=== PATIENT | female | born 1965 | race Caucasian/White ===

== ENCOUNTER 2016-07-17 11:45 | Emergency (ER) | payer OTHER ==
[2016-07-17 11:56] VITALS: BP 163/90; PULSE 95; TEMP 98; BMI 28.3
[2016-07-17] MEDS ORDERED: KETOROLAC TROMETHAMINE 60 MG/2 ML VIAL IM ONE (12:56)
--- NOTE | 2016-07-17 12:56 | PDOC ---
History of Present Illness - General Chief Complaint: Back Pain Stated Complaint: LOWER BACK PAIN Time Seen by Provider: 07/17/16 12:16 History Source: Patient Exam Limitations: No Limitations - History of Present Illness Initial Comments: 07/17/16 15:41 Chief complaint: Back injury Patient is a 50-year-old female with no significant medical issues who states she injured her back 2 days ago when lifting something at work. Patient complaining of pain to the right lower back into the leg without any numbness. Patient took Aleve earlier which did not help her. No incontinence or dysuria or saddle anesthesia. GENERAL/CONSTITUTIONAL: No fever, weakness. dizziness HEAD, EYES, EARS, NOSE AND THROAT: No change in vision. No ear pain or discharge. No sore throat. CARDIOVASCULAR: No chest pain RESPIRATORY: No shortness of breath or cough GASTROINTESTINAL: No pain, nausea, vomiting, diarrhea or constipation GENITOURINARY: No dysuria MUSCULOSKELETAL: +back pain SKIN: No rash NEUROLOGIC: No headache, vertigo, loss of consciousness, or loss of sensation. GENERAL: The patient is awake, alert, and fully oriented, in no acute distress. HEAD: Normal with no signs of trauma. EYES: Pupils equal, round and reactive to light, sclera anicteric, conjunctiva clear. ENT: pharynx: no erythema, no exudate, uvula midline NECK: supple CHEST: clear, nontender, rr ABD: soft, nontender With mild tenderness at the right si area EXTREMITIES: Normal range of motion, no edema. Strength 5 out of 5 bilaterally upper and lower extremities, neurovascular intact NEUROLOGICAL: Normal speech, patient is able to stand but it's painful SKIN: Warm, Dry Past History - Past Medical History Allergies/Adverse Reactions: Allergies Allergy/AdvReac Type Severity Reaction Status Date / Time No Known Drug Allergies Allergy Verified 07/17/16 11:50 Home Medications: Ambulatory Orders Pantoprazole Sodium [Protonix] 40 mg PO DAILY #30 tablet. 11/18/15 Meloxicam [Mobic] 15 mg PO DAILY #7 tablet 07/17/16 Oxycodone HCl/Acetaminophen [Percocet 5-325 mg Tablet] 2 tab PO Q4H PRN #24 tablet MDD 12 07/17/16 Anemia: No Asthma: No Cancer: No Cardiac Disorders: No CVA: No COPD: No CHF: No Dementia: No Diabetes: No GI Disorders: No Disorders: No HTN: No Hypercholesterolemia: No Liver Disease: No Seizures: No Thyroid Disease: No - Surgical History Abdominal Surgery: No Appendectomy: No Cardiac Surgery: No Cholecystectomy: No Lung Surgery: No Neurologic Surgery: No Orthopedic Surgery: No - Psycho/Social/Smoking Cessation Hx Anxiety: No Suicidal Ideation: No Smoking History: Never smoked Have you smoked in the past 12 months: No Number of Cigarettes Smoked Daily: 0 Hx Alcohol Use: No Drug/Substance Use Hx: No Substance Use Type: None Hx Substance Use Treatment: No *Physical Exam - Vital Signs Last Vital Signs Temp Pulse Resp BP Pulse Ox 98.0 F 95 H 20 163/90 99 07/17/16 11:47 07/17/16 11:47 07/17/16 11:47 07/17/16 11:47 07/17/16 11:47 Medical Decision Making - Medical Decision Making Patient with injury to lower back 2 days ago, lifting something at work, neurologically intact, no incontinence saddle anesthesia or numbness or tingling but has some pain down the right leg, good strength. Patient will get pain medicine, no imaging is indicated 4:30 PM: feels better and is able to go home to rest and take medication and then follow-up with orthopedist Discussed issues, findings, results, applicable medications and treatments and follow-up. All these were understood and all questions were answered *DC/Admit/Observation/Transfer Diagnosis at time of Disposition: Lower back injury Qualifiers: Encounter type: initial encounter Qualified Code(s): S39.92XA - Unspecified injury of lower back, initial encounter - Discharge Dispostion Admit: No - Prescriptions Prescriptions: Meloxicam [Mobic] 15 mg PO DAILY #7 tablet Oxycodone HCl/Acetaminophen [Percocet 5-325 mg Tablet] 2 tab PO Q4H PRN #24 tablet MDD 12 PRN Reason: Pain - Referrals Referrals: Juan Valencia MD [Staff Physician] - - Patient Instructions Printed Discharge Instructions: DI for Back Pain With Sciatica Additional Instructions: No heavy lifting or bending Apply ice to the area 20 minutes every 2 hours for the next 2 days Continue taking Mobic 15 mg once daily for pain. If still in pain you can also take Percocet one to 2 tablets every 4 hours. Return to the nearest ER if numbness, weakness, severe pain, problems with urinating or having bowel movements. Call orthopedist today for an appointment for further evaluation - Post Discharge Activity Work/School Note: Back to Work
[2016-07-17] MEDS ORDERED: KETOROLAC TROMETHAMINE 60 MG/2 ML VIAL ONE (13:02)
[2016-07-17] MEDS ORDERED: OXYCODONE/APAP 5/325MG COMBO TABLET ONE ×2 (13:53→14:22)
[2016-07-17] MEDS ORDERED: OXYCODONE/APAP 5/325MG COMBO TABLET PO ONE ×2 (14:17)
[2016-07-17] MEDS ORDERED: diazePAM 5 MG TABLET PO ONE (14:50)
[2016-07-17] MEDS ORDERED: diazePAM 5 MG TABLET ONE (14:52)
== END 2016-07-17 16:42 | disposition home or self-care (01) ==
LOC: JER 11:45 → JERFT 11:45
DX: S39.82XA Other specified injuries of lower back, initial encounter (principal); X50.0XXA Overexertion from strenuous movement or load, initial encounter; Y93.89 Activity, other specified; Y92.89 Other specified places as the place of occurrence of the external cause; Y99.0 Civilian activity done for income or pay
CPT/HCPCS: 99281-25

== ENCOUNTER 2019-10-07 12:00 | Day surgery (SDC) | payer OTHER ==
[2019-10-04 08:19] VITALS: BMI 30.7
[2019-10-07 12:27] LABS: PH,URINE 6.5 (5.0-8.0); URINE APPEARANCE CLEAR; URINE BILIRUBIN NEGATIVE (NEGATIVE); URINE COLOR YELLOW; URINE GLUCOSE (UA) NEGATIVE (NEGATIVE); URINE KETONE NEGATIVE (NEGATIVE); URINE LEUK ESTERASE NEGATIVE (NEGATIVE); URINE NITRITE NEGATIVE (NEGATIVE); URINE PROTEIN NEGATIVE (NEGATIVE); URINE UROBILINOGEN 0.2 mg/dL (0.2-1.0)
[2019-10-07 12:34] LABS: INR 0.92 (0.83-1.09); PROTHROMBIN TIME (PATIENT) 10.8 SEC (9.7-13.0)
[2019-10-07] MEDS ORDERED: oxyCODONE HCL 5 MG TABLET PO PRN (14:34)
[2019-10-07] MEDS ORDERED: ONDANSETRON 4 MG/2 ML VIAL IVPUSH PRN (14:34)
--- NOTE | 2019-10-07 14:40 | HP ---
History & Physical Update - History History: No Change - Physical Physical: No Change - Assessment Assessment: No Change - Plan Plan: No Change (for lap riky possible open; r/b/t/a's d/w the patient pre-op and in the office in [place] and informed consent obtained.)
[2019-10-07] MEDS ORDERED: LACTATED RINGERS SOLUTION 1,000 ML IV SCH (14:45)
[2019-10-07] MEDS ORDERED: ceFAZolin 2 GRAM PREMIX BAG IVPB ONE (14:56)
[2019-10-07] MEDS ORDERED: BUPIVACAINE HCL/PF 0.5% (5 MG/ML) 30 ML VIAL IJ ONE (15:41)
--- NOTE | 2019-10-07 16:04 | OP ---
Operative Note - Note: Operative Date: 10/07/19 Pre-Operative Diagnosis: Chronic Cholecystitis/cholelithiasis Operation: Lap cholecystectomy Post-Operative Diagnosis: Same as Pre-op Surgeon: Angel Dempsey Anesthesiologist And Critical Care: Audi Guerrier Anesthesiologist/FIXING CARPENTER: Joselin Johansen Anesthesia: General Specimens Removed: gallbladder Estimated Blood Loss (mls): 5 Fluid Volume Replaced (mls): 1,000 Operative Report Dictated: Yes
--- NOTE | 2019-10-07 16:05 | SURG ---
Surgery [employer] Note [employer]: Audi Guerrier PA-C Date of Service: 10/07/19 Diagnosis: chronic cholecystitis/cholelithiasis Procedure: Laprascopic cholecystectomy I was present for the entirety of the operative procedure. For further detail, please refer to operative report. Visit type - Case Type Case Type: Scheduled - New patient This patient is new to me today: Yes Date on this admission: 10/07/19
[2019-10-07] MEDS ORDERED: PROMETHAZINE HCL 25 MG/1 ML VIAL IVPB ONE (17:10)
[2019-10-07] MEDS ORDERED: PROMETHAZINE HCL 25 MG/1 ML VIAL IVPUSH PRN (17:22)
[2019-10-07 19:27] VITALS: PULSE 96
[2019-10-07 19:41] VITALS: BP 120/72; TEMP 97.2
[2019-10-08] MEDS ORDERED: oxyCODONE HCL 5 MG TABLET PO PRN (11:21)
--- NOTE | 2019-10-08 23:49 | OP ---
DATE OF OPERATION: 10/07/2019 PREOPERATIVE DIAGNOSIS: Chronic cholecystitis and cholelithiasis. POSTOPERATIVE DIAGNOSIS: Chronic cholecystitis and cholelithiasis. PROCEDURE: Laparoscopic cholecystectomy. SURGEON: Angel Dempsey MD. RD MANAGER: Audi Guerrier PA-C. ANESTHESIA: General. OPERATIVE FINDINGS: Chronic cholecystitis and cholelithiasis. The rest of the findings are unremarkable. DESCRIPTION OF PROCEDURE: The patient was placed on the operating room table in supine position. After the induction of general anesthesia, the patient's abdomen was prepped with ChloraPrep and draped in sterile fashion. Time-out was taken and then pneumoperitoneum established above the umbilicus using a Veress needle. Once 15 mm of intra-abdominal pressure was obtained, a 5-mm port was placed at the umbilicus. Additional lateral 5-mm ports and a subxiphoid 12-mm port were placed and laparoscopy carried out, and the previously noted findings were observed. The gallbladder was placed on cephalad and lateral traction, and dissection was begun at the neck of the gallbladder where the peritoneum was opened medially and laterally using blunt and sharp dissection and electrocautery. Dissection continued in the triangle of Calot where the cystic duct was identified coursing from the neck of the gallbladder distally to the common bile duct. It was dissected proximally and distally for length. Similarly, the artery was similarly identified and dissected. A critical view of safety was taken, and then the cystic duct divided proximally and distally using Endo Soham after it was clipped twice proximally and distally with large hemoclips. The artery was similarly clipped and divided. Hemostasis was checked for and noted to be good and then the gallbladder was removed from the liver bed in a retrograde fashion using electrocautery. Prior to removal from the edge of the liver, hemostasis was again verified and then the gallbladder removed from the edge of the liver, placed in an EndoCatch, and brought out through the subxiphoid port. Pneumoperitoneum was reestablished, hemostasis verified again, and then the 5-mm lateral and subxiphoid ports were removed under laparoscopic vision without evidence of bleeding from the port sites. The umbilical port was removed and the pneumoperitoneum evacuated. All port sites were infiltrated with 0.5% Marcaine and the skin edges closed with 4-0 Biosyn in a subcuticular and continuous fashion. Steri-Strips and Band-Aid dressings were placed and the procedure terminated at this point and the patient aroused from general anesthesia and transferred to the post anesthesia care unit in stable condition awake and alert. ESTIMATED BLOOD LOSS: 5 mL. REPLACEMENTS: Crystalloid. DRAINS: None. SPECIMENS: Gallbladder and contents to pathology. I, Angel Dempsey, was physically present in the operating room from the time the patient was placed on the operating room table until she was transferred to the post anesthesia care unit in [employer]. MD KEVIN Tejada/[id number] MTDD
--- NOTE | 2019-10-09 17:33 | PATH ---
Surgical Pathology Report Patient Name: KURT WORTHY [facility]. Rec. #: [id number] /Age/Gender: 1965 (Age: 53) / F Account: [id number] Location: [facility] SURGICAL Taken: 10/07/2019 Received: 10/08/2019 Reported: 10/09/2019 Physicians: Angel Dempsey MD Specimen(s) Received GALLBLADDER Clinical History Cholelithiasis, chronic cholecystitis Final Diagnosis GALLBLADDER, LAPAROSCOPIC CHOLECYSTECTOMY: CHRONIC CHOLECYSTITIS WITH CHOLELITHIASIS. Electronically Signed Ro Brice M.D. Gross Description Received in formalin, labeled "gallbladder," is a 6.5 x 3.0 x 3.0 cm. gallbladder with a 0.2 cm. in length portion of cystic duct attached. The outer surface is kevin green and varies from smooth to shaggy. The lumen contains yellow-green, sludgelike bile as well as abundant yellow, irregular to fragmented choleliths ranging from 0.1-1.4 cm in greatest dimension. The mucosa is dark green and velvety. The wall of the gallbladder measures 0.1 cm. in thickness. Data Communications Engineer sections are submitted in one cassette. 10/08/2019 saudi10/08/2019
== END 2019-10-07 19:35 | disposition home or self-care (01) ==
LOC: JASU-SURG 12:00
PROVIDERS: ATTEND Surgery
PROC: 0FT44ZZ Resection of Gallbladder, Percutaneous Endoscopic Approach (ICD-10-PCS; principal; 2019-10-07 14:00)
DX: K80.10 Calculus of gallbladder with chronic cholecystitis without obstruction (principal)
CPT/HCPCS: 36415; 81003; 85610; 88304-TC; 94760